=== PATIENT | female | born 1960 | race American Indian/Alaskan Native ===

== ENCOUNTER 2020-07-29 04:31 | Day surgery (SDC) | payer OTHER ==
[2020-07-28 15:05] VITALS: BMI 30.1
[2020-07-29] MEDS ORDERED: DEXAMETHASONE SOD PHOSPHATE/PF 10 MG/ML SDV ONE (07:28)
[2020-07-29] MEDS ORDERED: ROPIVACAINE HCL 0.5% 30ML VIAL ONE (07:28)
[2020-07-29] MEDS ORDERED: MIDAZOLAM HCL 2 MG/2 ML SINGLE DOSE VIAL ONE ×3 (07:30→07:39)
[2020-07-29] MEDS ORDERED: PROPOFOL 20 ML ONE ×2 (07:39→09:19)
[2020-07-29] MEDS ORDERED: BUPIVACAINE LIPOSOME/PF (EXPAREL) 266 MG/20 ML VIAL ONE (07:47)
[2020-07-29] MEDS ORDERED: PHENYLEPHRINE HCL 10 MG/1 ML SINGLE DOSE VIAL ONE (08:28)
[2020-07-29] MEDS ORDERED: ceFAZolin SODIUM 1 GM VIAL IVPB ONE ×2 (08:33→08:35)
[2020-07-29] MEDS ORDERED: ePHEDrine SULFATE 50 MG/1 ML AMPULE ONE (08:34)
[2020-07-29] MEDS ORDERED: KETOROLAC TROMETHAMINE 30 MG/1 ML VIAL ONE (09:33)
[2020-07-29] MEDS ORDERED: ONDANSETRON 4 MG/2 ML VIAL IVPUSH PRN (11:45)
[2020-07-29] MEDS ORDERED: oxyCODONE HCL 5 MG TABLET ONE (12:06)
[2020-07-29] MEDS ORDERED: oxyCODONE HCL 5 MG TABLET PO ONE (13:41)
[2020-07-29 14:37] VITALS: TEMP 97.8
[2020-07-29 14:49] VITALS: BP 122/70; PULSE 70
== END 2020-07-29 14:30 | disposition home or self-care (01) ==
LOC: JASU-SURG 04:31
PROVIDERS: ATTEND Orthopaedic Surgery
PROC: 0RQK4ZZ Repair Left Shoulder Joint, Percutaneous Endoscopic Approach (ICD-10-PCS; 2020-07-29)
PROC: 0RNK4ZZ Release Left Shoulder Joint, Percutaneous Endoscopic Approach (ICD-10-PCS; 2020-07-29)
PROC: 0PBB4ZZ Excision of Left Clavicle, Percutaneous Endoscopic Approach (ICD-10-PCS; principal; 2020-07-29 08:00)
DX: S43.432A Superior glenoid labrum lesion of left shoulder, initial encounter (principal); M75.42 Impingement syndrome of left shoulder; M65.812 Other synovitis and tenosynovitis, left shoulder; X58.XXXA Exposure to other specified factors, initial encounter; Y93.9 Activity, unspecified; Y92.9 Unspecified place or not applicable
CPT/HCPCS: 82962; 88304-TC; 94760

== ENCOUNTER 2021-04-10 00:23 | Emergency (ER) | payer OTHER ==
[2021-04-10 00:35] VITALS: BMI 30.8
[2021-04-10] MEDS ORDERED: MAG HYDROX/AL HYDROX/SIMETH 30 ML UNIT-DOSE CUP PO ONE (01:22)
[2021-04-10] MEDS ORDERED: FAMOTIDINE 20 MG/50 ML IVPB 20 MG/50 ML MG IVPB ONE ×2 (01:22→01:33)
[2021-04-10] MEDS ORDERED: ACETAMINOPHEN 1000 MG/100 ML VIAL (NON FORMULARY) IVPB ONE (01:22)
[2021-04-10] MEDS ORDERED: ACETAMINOPHEN INJECTION 100 ML IVPB ONE (01:32)
[2021-04-10] MEDS ORDERED: MAG HYDROX/AL HYDROX/SIMETH 30 ML UNIT-DOSE CUP ONE (01:32)
[2021-04-10 02:49] LABS: BASO % 0.8 % (0-2.0); EOS % 4.1 % (0-4.5); HEMATOCRIT 33.6 % (32.4-45.2); HEMOGLOBIN 11.4 GM/dL (10.7-15.3); LYMPH % 23.6 % (8-40); MCH 31.2 pg (25.7-33.7); MEAN CELL VOLUME 91.9 fl (80-96); MEAN PLT VOLUME 9.6 fl (7.5-11.1); MONO % 7.7 % (3.8-10.2); NEUT % 63.8 % (42.8-82.8); PLATELET COUNT 229 10^3/uL (134-434); RBC 3.65 M/mm3 (3.60-5.2); RDW 12.7 % (11.6-15.6); WHITE BLOOD COUNT 11.6 K/mm3 (4.0-10.0)
[2021-04-10 03:04] LABS: CHLORIDE 110 mmol/L (98-107); SODIUM 142 mmol/L (136-145)
[2021-04-10 03:06] LABS: ANION GAP 6 MMOL/L (8-16); CALCIUM 8.4 mg/dL (8.5-10.1); CO2 26 mmol/L (21-32); GLUCOSE,RANDOM 111 mg/dL (74-106)
[2021-04-10 03:09] LABS: CREATININE 1.1 mg/dL (0.55-1.3); SGOT/AST 17 U/L (15-37)
[2021-04-10 03:10] LABS: BILIRUBIN,TOTAL 0.3 mg/dL (0.2-1); SGPT/ALT 23 U/L (13-61)
[2021-04-10 03:12] LABS: ALK PHOS 103 U/L (45-117)
[2021-04-10 03:55] LABS: TOT PROT 7.5 g/dl (6.4-8.2)
[2021-04-10 06:58] VITALS: BP 121/63; PULSE 70; TEMP 97.5
== END 2021-04-10 07:11 ==
LOC: JER 00:23
PROC: 3E0333Z Introduction of Anti-inflammatory into Peripheral Vein, Percutaneous Approach (ICD-10-PCS; principal; 2021-04-10)
PROC: 3E033GC Introduction of Other Therapeutic Substance into Peripheral Vein, Percutaneous Approach (ICD-10-PCS; 2021-04-10)
DX: R07.9 Chest pain, unspecified (principal)
CPT/HCPCS: 36415; 71045-TC-FY; 80053; 82550; 82553; 84484; 85025; 93005; 93010; 99285-25; C9803; J0131; U0003; U0005

== ENCOUNTER 2022-10-19 04:11 | Day surgery (SDC) | payer OTHER ==
[2022-10-17 09:59] VITALS: BMI 29.7
[2022-10-19] MEDS ORDERED: MIDAZOLAM HCL 2 MG/2 ML SINGLE DOSE VIAL ONE (07:41)
[2022-10-19] MEDS ORDERED: PROPOFOL 20 ML ONE ×2 (07:41→09:16)
[2022-10-19] MEDS ORDERED: DEXAMETHASONE SOD PHOSPHATE 10 MG/1 ML VIAL ONE (07:46)
[2022-10-19] MEDS ORDERED: BUPIVACAINE HCL/PF 0.5% (5MG/ML) 10 ML VIAL ONE (07:46)
[2022-10-19] MEDS ORDERED: ceFAZolin SODIUM 1 GM VIAL ONE (08:38)
[2022-10-19] MEDS ORDERED: DEXAMETHASONE SOD PHOSPHATE 4 MG/1 ML VIAL ONE (08:39)
[2022-10-19] MEDS ORDERED: ONDANSETRON 4 MG/2 ML VIAL ONE (08:39)
[2022-10-19] MEDS ORDERED: ceFAZolin SODIUM 1 GM VIAL IVPB ONE (08:40)
[2022-10-19] MEDS ORDERED: oxyCODONE HCL 5 MG TABLET PO PRN (09:56)
[2022-10-19] MEDS ORDERED: ONDANSETRON 4 MG/2 ML VIAL IVPUSH PRN (09:56)
[2022-10-19] MEDS ORDERED: LACTATED RINGERS SOLUTION 1,000 ML IV SCH (10:00)
[2022-10-19] MEDS ORDERED: ACETAMINOPHEN INJECTION 100 ML IVPB ONE (10:42)
[2022-10-19] MEDS ORDERED: ACETAMINOPHEN 1000 MG/100 ML BAG IVPB ONE (14:50)
[2022-10-19 17:36] VITALS: BP 144/59; PULSE 94; RESP 16; TEMP 97.4
== END 2022-10-19 13:55 | disposition home or self-care (01) ==
LOC: JASU-SURG 04:11
PROVIDERS: ATTEND Orthopaedic Surgery
PROC: 0RNJ4ZZ Release Right Shoulder Joint, Percutaneous Endoscopic Approach (ICD-10-PCS; principal; 2022-10-19 08:00)
PROC: 0LQ14ZZ Repair Right Shoulder Tendon, Percutaneous Endoscopic Approach (ICD-10-PCS; 2022-10-19 08:00)
DX: M75.41 Impingement syndrome of right shoulder (principal); M19.011 Primary osteoarthritis, right shoulder; M75.101 Unspecified rotator cuff tear or rupture of right shoulder, not specified as traumatic
CPT/HCPCS: 82962; 94760; C1713; C9803-CS; J1100; U0003; U0005

== ENCOUNTER 2023-05-18 04:50 | Day surgery (SDC) | payer OTHER ==
[2023-05-17 11:38] VITALS: BMI 30.1
[2023-05-18] MEDS ORDERED: LIDOCAINE HCL 1%, 10 MG/ML (20ML VIAL) ONE (08:08)
[2023-05-18] MEDS ORDERED: LIDOCAINE HCL 1%, 10 MG/ML (20ML VIAL) INF ONE ×2 (08:36→10:46)
[2023-05-18 08:43] VITALS: RESP 18
[2023-05-18 11:38] VITALS: BP 114/75; PULSE 75; TEMP 97.3
== END 2023-05-18 11:35 | disposition home or self-care (01) ==
LOC: JASU-SURG 04:50
PROVIDERS: ATTEND Orthopaedic Surgery
PROC: 015D3ZZ Destruction of Femoral Nerve, Percutaneous Approach (ICD-10-PCS; principal; 2023-05-18 10:15)
DX: M17.12 Unilateral primary osteoarthritis, left knee (principal); M25.562 Pain in left knee

== ENCOUNTER 2023-06-22 04:36 | Day surgery (SDC) | payer OTHER ==
[2023-06-21 11:35] VITALS: BMI 30.1
[2023-06-22] MEDS ORDERED: LIDOCAINE HCL 1%, 10 MG/ML (20ML VIAL) ONE (07:12)
[2023-06-22 10:22] VITALS: RESP 18
[2023-06-22] MEDS ORDERED: LIDOCAINE HCL 1%, 10 MG/ML (20ML VIAL) INF ONE (11:09)
[2023-06-22 16:19] VITALS: BP 146/76; PULSE 74; TEMP 97.8
== END 2023-06-22 13:10 | disposition home or self-care (01) ==
LOC: JASU-SURG 04:36
PROVIDERS: ATTEND Orthopaedic Surgery
PROC: 015D0ZZ Destruction of Femoral Nerve, Open Approach (ICD-10-PCS; principal; 2023-06-22 12:00)
DX: M17.11 Unilateral primary osteoarthritis, right knee (principal)